=== PATIENT | female | born 1995 | race Caucasian/White ===

== ENCOUNTER → 2017-03-04 | Outpatient (CLI) | payer MEDICAID ==
--- NOTE | 2017-03-04 16:29 | RADIOLOGY REPORT (SQ) ---
EXAM DESCRIPTION: U/S OB TRANSVAGINAL W/O DOP COMPLETED DATE/TIME: 03/04/2017 4:15 pm REASON FOR STUDY: ENCOUNTER FOR SUPERVISON OR NORMAL FIRST Z34.02 ENCNTR FOR SUPRVSN OF N ORMAL FIRST PREG, SECOND TRIME COMPARISON: None. TECHNIQUE: Transvaginal static and realtime grayscale images acquired of the pelvis. Additional ewa cted spectral and color Doppler images recorded. All images stored on PACs. bHCG: Not available. LIMITATIONS: None. FINDINGS: UTERUS: No masses. No anomalies. GESTATIONAL SAC: Gestational sac, measurements corresponding to a 5 week 6 day gestation. YOLK SAC: Two yolk sacs are present. POLE: No. RIGHT ADNEXA: Normal ovary with normal vascular flow. No adnexal free fluid. No adnexal masses. LEFT ADNEXA: Normal ovary with normal vascular flow. No adnexal free fluid. No adnexal masses. FREE FLUID: None. OTHER: No other significant finding. IMPRESSION: EARLY TWIN INTRAUTERINE . POLE NOT YET VISUALIZED. RECOMMEND FOLLOW-UP ULTRASOUND IN SEVERAL DAYS TO CONFIRM NORMAL PROGRESSIVE DEVELOPMENT. Trimester of : First - 0 to 13 weeks. TECHNICAL DOCUMENTATION: JOB ID: [id number] [employer]- All Rights Reserved
== END ==
LOC: WI 14:33
PROVIDERS: ATTEND Nurse Practitioner Women's Health
DX: Z34.02 Encounter for supervision of normal first pregnancy, second trimester (principal)
CPT/HCPCS: 76817

== ENCOUNTER → 2017-03-18 | Outpatient (CLI) | payer MEDICAID ==
--- NOTE | 2017-03-18 16:22 | RADIOLOGY REPORT (SQ) ---
EXAM DESCRIPTION: U/S [id number] TRNABD 1GES W/ODOP COMPLETED DATE/TIME: 03/18/2017 3:47 pm REASON FOR STUDY: SIZE AND DATES Z34.01 ENCNTR FOR SUPRVSN OF NORMAL FIRST PREG, FIRST TRIMES COMPARISON: OB ULTRASOUND 03/04/2017 TECHNIQUE: Endovaginal static and realtime grayscale images acquired of the pelvis. Additional selec crow spectral and color Doppler images recorded. All images stored on PACs. bHCG: Not available LIMITATIONS: None. FINDINGS: FETUS: Living intrauterine . A monochorionic diamniotic twin is presen t. Each embryo is surrounded by its own amniotic membrane. EGA: 7 weeks 3 days JESSICA: 11/01/2017 FHR: Embryo a 169 beats per minute, embryo B 153 beats per minute. SUBCHORIONIC BLEED: Yes SIZE OF BLEED: Subchorionic hemorrhage along the lower uterine segment 1.9 x 1.2 x 0.7 cm in size. UTERUS: No masses. No anomalies. Uterus is 9.3 x 6.7 x 4.3 cm in size. CERVICAL LENGTH: 3 cm Closed. RIGHT ADNEXA: Normal ovary with normal vascular flow. Right ovary 3.3 x 2.8 x 2 cm in size No adnexal free fluid. No adnexal masses. LEFT ADNEXA: Normal ovary with normal vascular flow. Left ovary 1.9 x 1.7 x 1.2 cm in size No adnexal free fluid. No adnexal masses. FREE FLUID: None. OTHER: No other significant finding. IMPRESSION: LIVING INTRAUTERINE . Monochorionic diamniotic twin EGA 7 weeks 3 days Trimester of : First - 0 to 13 weeks. TECHNICAL DOCUMENTATION: JOB ID: [id number] [employer]- All Rights Reserved
== END ==
LOC: RAD 14:31
PROVIDERS: ATTEND Nurse Practitioner Women's Health
DX: Z34.01 Encounter for supervision of normal first pregnancy, first trimester (principal)
CPT/HCPCS: 76801

== ENCOUNTER 2017-09-17 00:07 | Inpatient (IN) | payer MEDICAID ==
[2017-09-17 00:44] LABS: AMNISURE (ROM) NEGATIVE (NEGATIVE)
[2017-09-17 00:47] LABS: AMORPHOUS SEDIMENT,URINE TRACE /HPF; APPEARANCE,URINE CLOUDY; BILIRUBIN,URINE NEGATIVE (NEGATIVE); COLOR,URINE YELLOW; GLUCOSE, URINE NEGATIVE (NEGATIVE); KETONES,URINE NEGATIVE (NEGATIVE); LEUKOCYTE ESTERASE,URINE LARGE (NEGATIVE); NITRITE,URINE NEGATIVE (NEGATIVE); PROTEIN,URINE NEGATIVE (NEGATIVE); URINE SPECIFIC GRAVITY 1.005; UROBILINOGEN,URINE NEGATIVE mg/dL (<2.0)
[2017-09-17 01:00] LABS: URINE AMPHETAMINES SCREEN NEGATIVE; URINE BARBITURATES SCREEN NEGATIVE; URINE BENZODIAZEPINES SCREEN NEGATIVE; URINE COCAINE SCREEN NEGATIVE; URINE MARIJUANA (THC) SCREEN NEGATIVE; URINE METHADONE SCREEN NEGATIVE; URINE PHENCYCLIDINE SCREEN NEGATIVE
[2017-09-17 01:30] LABS: RBCS (WET MOUNT) 1+ RBCS SEEN; T.VAGINALIS (WET MOUNT) NO TRICHOMONAS SEEN; WBCS (WET MOUNT) 2+ WBCS SEEN; YEAST (WET MOUNT) YEAST SEEN
--- NOTE | 2017-09-17 01:51 | RADIOLOGY REPORT (SQ) ---
EXAM DESCRIPTION: U/S OB LIMITED CLINICAL HISTORY: 22 years Female, suspected PROM, presentation, MVP, twins clinical gestational age of 33 weeks, 1 day. COMPARISON: None. TECHNIQUE: Limited third trimester obstetrical transabdominal ultrasound obtained to evaluate for viability and maximum vertical pocket of amniotic fluid. FINDINGS: Fetus A: Heart rate 152 bpm. Maximal vertical pocket of 4.5 cm. A vertex presentation. Fetus B: Heart rate of 145 bpm. Maximum vertical pocket of 6.3 cm. Vertex presentation. No other abnormalities identified on limited obstetrical ultrasound. IMPRESSION: 1. Live twin intrauterine . Normal maximum vertical pocket for both fetuses. Heart rate for fetus a of 152 bpm. Heart rate of fetus B1 145 bpm
[2017-09-17] MEDS ORDERED: BETAMET ACET/BETAMET NA INJ 6 MG/1 ML ONE (01:52)
[2017-09-17] MEDS ORDERED: AMPICILLIN SOD INJ 2 GM VIAL ONE ×3 (01:52→14:06)
[2017-09-17] MEDS ORDERED: RINGERS SOLUTION,LACTATED 1,000 ML IV PRN (01:56)
[2017-09-17] MEDS ORDERED: AMPICILLIN SOD INJ 2 GM VIAL IV PRN (02:04)
[2017-09-17] MEDS ORDERED: ERYTHROMYCIN INJ 500 MG VIAL IV ONE (02:06)
[2017-09-17 02:27] LABS: ABSOLUTE EOSINOPHILS # (AUTO) 0.2 10^3/uL (0.0-0.6); ABSOLUTE LYMPHOCYTES (AUTO) 2.6 10^3/uL (0.5-4.7); ABSOLUTE MONOCYTES (AUTO) 0.8 10^3/uL (0.1-1.4); ABSOLUTE NEUT (AUTO) 5.5 10^3/uL (1.7-8.2); BASOPHILS % (AUTO) 0.2 % (0-2); EOSINOPHILS % (AUTO) 2.5 % (0-6); HEMATOCRIT 31.2 % (36.0-47.0); HEMOGLOBIN 10.8 g/dL (12.0-15.5); LYMPHOCYTES % (AUTO) 28.7 % (13-45); MEAN CORPUSCULAR HEMOGLOBIN 31.8 pg (27.0-33.4); MEAN CORPUSCULAR HGB CONC 34.5 g/dL (32.0-36.0); MEAN CORPUSCULAR VOLUME 92 fl (80-97); MONOCYTES % (AUTO) 9.1 % (3-13); PLATELET COUNT 141 10^3/uL (150-450); RED BLOOD COUNT 3.39 10^6/uL (3.72-5.28); RED CELL DISTRIBUTION WIDTH 12.5 % (11.5-14.0); SEGMENTED NEUTROPHILS % (AUTO) 59.5 % (42-78); TOTAL CELLS COUNTED % (AUTO) 100 %; WHITE BLOOD COUNT 9.2 10^3/uL (4.0-10.5)
[2017-09-17] MEDS ORDERED: AMPICILLIN SODIUM 2 GM in NORMAL SALINE 100 ML IV ONE (02:30)
[2017-09-17] MEDS ORDERED: RINGERS SOLUTION,LACTATED 1,000 ML IV ONE (02:30)
[2017-09-17] MEDS ORDERED: ERYTHROMYCIN INJ 500 MG VIAL IV PRN (03:00)
[2017-09-17] MEDS ORDERED: BETAMET ACET/BETAMET NA INJ 6 MG/1 ML IM ONE (03:00)
[2017-09-17] MEDS: ERYTHROMYCIN LACTOBIONATE 250 MG in NORMAL SALINE 100 ML IV SCH ×3 (03:05→15:09)
[2017-09-17] MEDS ORDERED: AMPICILLIN SODIUM 2 GM in NORMAL SALINE 100 ML IV SCH (06:00)
--- NOTE | 2017-09-17 10:27 | L&D Progress Notes ---
PROGRESS NOTES Datetime Report Generated by CPN: 09/17/2017 10:27 PROGRESS NOTE Informed Consent Obtained: Vaginal Delivery; Risks, Benefits and Alternatives Discussed Vital Signs : Reviewed; Within Normal Limits Comment: no uc's,no c/o, seen by Dr. Bo, vs stable, POC discussed VAGINAL EXAM Dilatation: 1 Effacement: 25 Station: -3 Contractions: rare MEMBRANES Membranes: Ruptured Amniotic Fluid Color: Clear FETUS A Presentation: Vertex FETUS B Presentation: Vertex SIGNATURE SIGNATURE: [id number] Assignment: Liu Bo MD Signature: with User ID: [email or web address] : with User ID: [email or web address]
[2017-09-17] MEDS: AMPICILLIN SODIUM 2 GM in NORMAL SALINE 100 ML IV SCH (21:12)
[2017-09-17] MEDS: ERYTHROMYCIN BASE 250 MG TABLET PO SCH (21:24)
[2017-09-17 22:25] LABS: CHLAM PCR NOT DETECTED (NOT DETECT); GON PCR NOT DETECTED (NOT DETECT)
[2017-09-18] MEDS: AMPICILLIN SODIUM 2 GM in NORMAL SALINE 100 ML IV SCH ×2 (02:03→09:11)
[2017-09-18] MEDS: ERYTHROMYCIN BASE 250 MG TABLET PO SCH ×2 (02:04→09:11)
[2017-09-18] MEDS ORDERED: BETAMET ACET/BETAMET NA INJ 6 MG/1 ML IM SCH ×2 (03:00→08:00)
--- NOTE | 2017-09-18 04:32 | Non Stress Test Report ---
Non Stress Test Datetime Report Generated by CPN: 09/18/2017 04:32 DEMOGRAPHIC EGA NST: 33.4 INDICATION Indication for Study: Other MONITORING Monitor Explained: Monitor Explained; Test Explained; Patient Verbalized Understanding Time on Monitor: 09/17/2017 13:55 Time off Monitor: 09/17/2017 14:27 NST Duration: 32 NST INTERVENTIONS NST Interventions: None Physician Notified NST: Dr. Bo BABY A: [id number] BABY A Movement : Present Contraction Frequency : none FHR Baseline : 130 Accelerations : 15X15 Decelerations : None Variability : Moderate 6-25bpm NST Review: Meets Criteria for Reactive NST NST Review and Verified By : Brigid Hakan RNC NST Results: Reactive BABY B Movement: Present FHR Baseline: 125 Accelerations: 15X15 Decelerations: Variable Variability: Moderate 6-25bpm NST Review: Meets Criteria for Reactive NST NST Reviewed And Verified By: Brigid Hakan RNC NST Results: Reactive NST REPORT Report Trigger: Send Report Report Trigger: Send Report
[2017-09-18] MEDS ORDERED: FENTANYL/BUPIVACAINE/NS/PF 200 MCG/100 ML RTUINJ EPI ONE (06:22)
[2017-09-18] MEDS ORDERED: BUPIVACAINE HCL 0.25 % INJ/PF (2.5 MG/1 ML) 30 ML VIAL ONE (06:22)
[2017-09-18] MEDS ORDERED: EPHEDRINE SULFATE INJ 50 MG/1 ML AMPULE ONE (06:22)
[2017-09-18] MEDS ORDERED: BENZOIN/ALOE VERA/STORAX/TOLU TINCTURE 60 ML TP PRN (06:23)
[2017-09-18] MEDS ORDERED: EPHEDRINE SULFATE INJ 50 MG/1 ML AMPULE IV ONE (06:23)
[2017-09-18] MEDS ORDERED: DIPHENHYDRAMINE HCL 50 MG/ML VIAL IV PRN (06:23)
[2017-09-18] MEDS ORDERED: BUPIVACAINE HCL 0.25 % INJ/PF (2.5 MG/1 ML) 30 ML VIAL INFIL ONE (06:23)
--- NOTE | 2017-09-18 07:28 | RADIOLOGY REPORT (SQ) ---
EXAM DESCRIPTION: U/S OB LIMITED CLINICAL HISTORY: 22 years Female, limited obstetrical ultrasound to evaluate for presentation. Clinical gestational age of 33 weeks, 2 day. COMPARISON: 09/17/2017 TECHNIQUE: Limited third trimester obstetrical transabdominal ultrasound obtained to evaluate for 20 presentation. FINDINGS: Fetus A: Heart rate 133 bpm. Vertex presentation. Fetus B: Heart rate of 131 bpm. Vertex presentation. No other abnormalities identified on limited obstetrical ultrasound. IMPRESSION: 1. Live twin intrauterine . Heart rate for fetus A of 133 bpm. Heart rate of fetus B 131 bpm Electronically signed by: Vinod Galeana 09/18/2017 6:26 AM AIRPLANE MECHANIC
[2017-09-18] MEDS ORDERED: MISOPROSTOL 0.2 MG TABLET ONE (08:07)
[2017-09-18] MEDS ORDERED: OXYTOCIN/NORMAL SALINE 20 UNIT/1,000 ML RTUINJ ONE (08:07)
[2017-09-18] MEDS ORDERED: METHYLERGONOVINE MALEATE INJ/PF 0.2 MG/1 ML AMPULE ONE (08:07)
[2017-09-18] MEDS ORDERED: LIDOCAINE 1% INJ-PF (10 MG/ML) 30 ML SDV ONE (08:07)
[2017-09-18] MEDS: FENTANYL/BUPIVACAINE/NS/PF 200 MCG/100 ML RTUINJ EPI PRN ×3 (09:06→14:07)
[2017-09-18] MEDS: EPHEDRINE SULFATE INJ 50 MG/1 ML AMPULE IV PRN ×2 (09:55→14:07)
--- NOTE | 2017-09-18 11:44 | L&D Progress Notes ---
PROGRESS NOTES Datetime Report Generated by CPN: 09/18/2017 11:44 PROGRESS NOTE Impression: Normal Progression of Labor Procedures: Sterile Vag Exam Plan: Continue Present Management Informed Consent Obtained: Vaginal Delivery; Risks, Benefits and Alternatives Discussed Vital Signs : Reviewed Comment: pt is 7/c/+1 and will get OR ready for delivery of [place]/Di TIUP for of TIUP. Vtx/Vtx by US this am. CAT I FHR tracing A/B. A with variable decels. FETUS C SIGNATURE: [id number] SIGNATURE: [id number];[id number] Signature: with User ID: [email or web address]
[2017-09-18] MEDS ORDERED: BENZOCAINE/MENTHOL AEROSOL SPRAY 56 ML TOP PRN (12:21)
[2017-09-18] MEDS ORDERED: PROMETHAZINE HCL 25 MG TABLET PO PRN (12:21)
[2017-09-18] MEDS ORDERED: PROMETHAZINE HCL INJ 25 MG/1 ML VIAL IV PRN (12:21)
[2017-09-18] MEDS ORDERED: DIPHENHYDRAMINE HCL 25 MG CAPSULE PO PRN (12:21)
[2017-09-18] MEDS ORDERED: OXYTOCIN/NORMAL SALINE 20 UNIT/1,000 ML RTUINJ IV PRN (12:21)
[2017-09-18] MEDS ORDERED: ZOLPIDEM TARTRATE 5 MG TABLET PO PRN (12:21)
[2017-09-18] MEDS ORDERED: GLYCERIN/WITCH HAZEL LEAF 1 EACH MED..PAD TP PRN (12:21)
[2017-09-18] MEDS ORDERED: DIBUCAINE 1% OINTMENT 28 GM TP PRN (12:21)
[2017-09-18] MEDS ORDERED: DIPH/PERTUSS(ACELL)/TETANUS VAC/PF 0.5 ML SYR (>=10YO) IM PRN (12:21)
[2017-09-18] MEDS ORDERED: PSEUDOEPHEDRINE HCL 30 MG TABLET PO PRN (12:21)
[2017-09-18] MEDS ORDERED: ACETAMINOPHEN 650 MG SUPP.RECT PR PRN (12:21)
[2017-09-18] MEDS ORDERED: NA PHOS,M-B/NA PHOS,DI-BA (ADULT) 133 ML ENEMA PR PRN (12:21)
[2017-09-18] MEDS ORDERED: ACETAMINOPHEN WITH CODEINE #3 TABLET PO PRN ×2 (12:21)
[2017-09-18] MEDS ORDERED: MEASLES,MUMPS&RUBELLA VACC/PF 0.5 ML VIAL SUBCUT PRN (12:21)
[2017-09-18] MEDS ORDERED: MAGNESIUM HYDROXIDE SUSP 30 ML UDCUP PO PRN (12:21)
[2017-09-18] MEDS ORDERED: PROMETHAZINE HCL 25 MG SUPP.RECT PR PRN (12:21)
--- NOTE | 2017-09-18 15:23 | Admission Physical ---
Datetime Report Generated by CPN: 09/18/2017 15:23 CURRENT ADMISSION Chief Complaint: Suspected Ruptured Membranes Indication for Induction: Not Applicable Indication for Induction: , Intrauterine ; No Active Labor; Ruptured Membranes Admit Plan: Admit to Unit; Observation/Evaluation ALLERGIES Medication Allergies: No Medication Allergies: No Known Allergies (09/17/2017) Latex: No Latex Allergies OBSTETRICAL HISTORY EDC: 11/01/2017 00:00 : 1 Para: 0 Term: 0 : 0 SAB: 0 IAB: 0 Ectopic: 0 Livin Cesareans: 0 VBACs: 0 Multiple Births: 0 Gestational Diabetes: No Rh Sensitization: No Incompetent Cervix: No OPAL: No Infertility: No ART Treatment: No Uterine Anomaly: No IUGR: No Hx Previous C/S: No Macrosomia: No Hx Loss/Stillborn: No PIH: No Hx : No Placenta Previa/Abruption: No Depression/PP Depression: No PTL/PROM: No Post Hemorrhage: No Current Procedures: Ultrasound; NST; Doppler Flow Study Obstetrical History Comments: G1-Mo/Di Twins: Twin B with marginal cord insertion per MFM SEE RECORDS Alcohol: No Marijuana : No Cocaine: No Other Illicit Drugs: No Cigarettes: Never Smoker. [id number] MEDICAL HISTORY Diabetes: No Blood Transfusion: No Pulmonary Disease (Asthma, TB): No Breast Disease: No Hypertension: No Rn Supplemental Surgery: No Heart Disease: No Hosp/Surgery: No Autoimmune Disorder: No Anesthetic Complications: No Kidney Disease: No Abnormal Pap Smear: No Neuro/Epilepsy: No Psychiatric Disorders: No Other Medical Diseases: No Hepatitis/Liver Disease: No Significant Family History: No Varicosities/Phlebitis: No Trauma/Violence : No Thyroid Dysfunction: No INFECTIOUS HISTORY Gonorrhea: No Genital Herpes: No Chlamydia: No Tuberculosis: No Syphilis: No Hepatitis: No HIV/AIDS Exposure: No Rash or Viral Illness: No HPV: No PHYSICAL EXAM General: Normal HEENT: Normal Neurologic: Normal Thyroid: Deferred Heart: Normal Lungs: Normal Breast: Deferred Back: Normal Abdomen: Normal Genitourinary Exam: Normal Extremities: Normal DTRs: Normal Pelvic Type: Adequate VAGINAL EXAM Dilatation: 1 Effacement: 25 Station: -3 Contraction Comments: rare MEMBRANES Membranes: Ruptured Amniotic Fluid Color: Clear FETUS A EGA: 33.4 Monitoring: External US FHR- Baseline: 140 Variability: Moderate 6-25bpm Accelerations: 15X15 Decelerations: None FHR Category: Category I Presentation: Vertex Admit Comment: 22yo at 33+4ega (dated by 7+3ega US on 03/18/2017) who presents for suspected PPROM. Pt reports gush of fluid at 2315 - cleare fluid. She reports that she then continued to leak. Amnisure was done which was negative. However, still noting increase fluid on perineum - Wet prep, Fern and GBS done, GC/CT done. Pooling and valsalva noted on exam and Ferning present. REviwed PPROM with patient and need for steroids for FLM. Amp/Erythro for latency. Admit to l_D for observation and expectant management. Reviewed plan to deliver if unstoppable labor or when she reaches 34weeks. babies are now vtx/vtx and would be good candidate for Vaginal delivery. FETUS B Monitoring: External US Monitoring: External US Monitoring: External US Monitoring: External US Monitoring: External US Monitoring: External US Monitoring: External US Monitoring: External US Monitoring: External US Monitoring: External US Monitoring: External US Monitoring: External US Monitoring: External US Monitoring: External US Monitoring: External US Monitoring: External US Monitoring: External US Monitoring: External US Monitoring: External US Monitoring: External US Monitoring: External US Monitoring: External US Variability: Moderate 6-25bpm Accelerations: 15X15 Decelerations: None FHR Category: Category I Presentation: Vertex PLANS FOR LABOR AND DELIVERY Labor and Delivery: None Pain Management: Epidural Feeding Preference: Breast Benefit of Breast Feed Discussed: Yes INFORMED CONSENT Informed Consent Obtained: Vaginal Delivery; Risks, Benefits and Alternatives Discussed Informed Consent Obtained: Vaginal Delivery; Risks, Benefits and Alternatives Discussed Signature: with User ID: [email or web address]
[2017-09-18] MEDS: IBUPROFEN 800 MG TABLET PO SCH ×2 (16:46→21:14)
[2017-09-18] MEDS: FERROUS SULFATE 325 MG TABLET PO SCH (18:41)
[2017-09-18] MEDS: DOCUSATE SODIUM 100 MG CAPSULE PO SCH (18:41)
[2017-09-18] MEDS: FAMOTIDINE 20 MG TABLET PO SCH (21:14)
[2017-09-19] MEDS ORDERED: AMPICILLIN TRIHYD 500 MG CAPSULE PO SCH
[2017-09-19] MEDS: IBUPROFEN 800 MG TABLET PO SCH ×3 (05:51→21:32)
[2017-09-19 07:50] LABS: HEMOGLOBIN 9.7 g/dL (12.0-15.5); MEAN CORPUSCULAR HEMOGLOBIN 31.2 pg (27.0-33.4); MEAN CORPUSCULAR HGB CONC 33.5 g/dL (32.0-36.0); MEAN CORPUSCULAR VOLUME 93 fl (80-97); PLATELET COUNT 146 10^3/uL (150-450); RED BLOOD COUNT 3.11 10^6/uL (3.72-5.28); RED CELL DISTRIBUTION WIDTH 12.5 % (11.5-14.0); WHITE BLOOD COUNT 14.4 10^3/uL (4.0-10.5)
--- NOTE | 2017-09-19 08:32 | Delivery Summary ---
Del Sum A-C Datetime Report Generated by CPN: 09/19/2017 08:31 DELIVERY PERSONNEL DELIVERY PERSONNEL: [id number] Delivery Doctor:: Lacy Chu MD Labor and Delivery Nurse:: KORI Mai Labor and Delivery Nurse:: KORI Pulido Nurse Practitioner:: NOELLE Todd Nursery Nurse:: Fina Keen RN Nursery Nurse:: Adina Becerril RN Industrial Aerial Installer/POTATO PICKER: Yoli Levine CNA II Industrial Aerial Installer/HANH: Basilia Shaver, CHAMBER WORKER MATERNAL INFORMATION Delivery Anesthesia: Epidural Medications After Delivery: Pitocin Bolus-Please Comment; Pitocin Drip 20 Units/1000ml NSS Estimated Blood Loss (ml): 350 Maternal Complications: Premature Rupture of Membranes; Other Other Maternal Complications: MO/DI Twins Provider Comments: Patient evaluated and c/c/+2 with baby A. Patient brought to the OR and pushed easily with delivery of Baby A at 1203 in ADELIA presentation. No nuchal Cord. Shoulders and body delivered without difficulty. Cord doubly clamped and cut and infant to Peds for NRP. Baby B evaluated and vertex presentation. AROM performed. Head descended into pelvis quickly and prolapsed cord noted - easily reduced back into uterus behind Head. FHR stable in 120's and reassuring until just before delivery of head. head then easily delivered in JOSE CARLOS presentation at 1210 and shoulders and body delivered without difficulty. Cord doubly clamped and cut and infant to Peds for NRP. Placentas delivered intact spontaneously at 1213. One clamp placed on placenta for Baby A, Two clamps placed on placenta for baby B. No perineal lacerations. Mother and baby stable upon provider leaving the room. Weights and apgars pending due to 33+4ega and need to go to NICU/Nursery. LABOR SUMMARY EDC: 11/01/2017 00:00 No. Babies in Womb: 2 Attempted: No Labor Anesthesia: Epidural LABOR INFORMATION Reason for Induction: Not Applicable Onset of Labor: 09/18/2017 03:00 Complete Dilatation: 09/18/2017 11:45 Oxytocin: N/A Group B Beta Strep: unknown Steroids Given: Full Course Reason Steroids Not Administered: Indication; Imminent Delivery MEMBRANES Membranes Rupture Method: Spontaneous Rupture of Membranes: 09/16/2017 23:15 Length of Rupture (hr): 36.80 Amniotic Fluid Color: Clear Amniotic Fluid Amount: Moderate Amniotic Fluid Odor: Normal STAGES OF LABOR Stage 1 hr: 8 Stage 1 min: 45 Stage 2 hr: 0 Stage 2 min: 18 Stage 3 hr: 0 Stage 3 min: 10 Total Time in Labor hr: 9 Total Time in Labor min: 13 VAGINAL DELIVERY Episiotomy: None Laceration #1: None Laceration Extension #1: N/A Laceration Repair: Not Applicable Sponge Count Correct: Yes Sharps Count Correct: Yes CSECTION DELIVERY Primary Indication: N/A Secondary Indication: N/A Labor: N/A Elective: N/A CSection Incision: N/A BABY A INFORMATION Delivery Date/Time: 09/18/2017 12:03 Method of Delivery: Vaginal Born in Route : No : N/A Forceps: N/A Vacuum Extraction: N/A Shoulder Dystocia : No PRESENTATION/POSITION BABY A Presentation: Cephalic Cephalic Presentation: Vertex Vertex Position: Right Occipital Anterior PLACENTA INFORMATION BABY A Placenta Delivery Time : 09/18/2017 12:13 Placenta Method of Delivery: Spontaneous Placenta Status: Delivered SCORES BABY A Heart Rate 1 min: >100 bpm Resp Effort 1 min: Good Cry Reflex Irritability 1 min: Cough or Sneeze or Pulls Away Muscle Tone 1 min: Active Motion Color 1 min: Body [place], Extremities Blue SCORE 1 MIN: 9 Heart Rate 5 min: >100 bpm Resp Effort 5 min: Good Cry Reflex Irritability 5 min: Cough or Sneeze or Pulls Away Muscle Tone 5 min: Active Motion Color 5 min: Body [place], Extremities Blue SCORE 5 MIN: 9 INFORMATION BABY A Gestational Age at Delivery: 33.5 Gestational Status: - <34 Weeks Outcome : Liveborn Condition : Stable Sex: Male IDENTIFICATION BABY A Infant Verification Date/Time: 09/18/2017 12:45 ID Band Number: [id number] Mother's Name Verified: Yes Infant RN Verifying Infant: K Galdino RNC/A Kai RN WEIGHT/LENGTH BABY A Birthweight (gm): 1985 Weight (lb): 4 Infant Weight (oz): 6 Infant Length (in): 17.75 Length (cm): 45.09 CORD INFORMATION BABY A No. Cord Vessels: 3 Nuchal Cord : N/A Cord Blood Taken: Yes-For Storage (Mom's Blood type +) Infant Suction: Mouth; Nose ASSESSMENT BABY A Infant Respirations: Appears Normal Skin to Skin: No Assistant Property Manager/ALS Called : Yes Infant Care By: D Matters/R Dimitris/ R Gr/L Tovar Transferred To: NICU BABY B INFORMATION Delivery Date/Time: 09/18/2017 12:10 Method of Delivery : Vaginal Born in Route : No : N/A Forceps : N/A Vacuum Extraction: N/A Shoulder Dystocia : No SHOULDER DYSTOCIA BABY B Infant Delivery Date/Time: 09/18/2017 12:10 PRESENTATION/POSITION BABY B Presentation : Cephalic Cephalic Position : Vertex Vertex Position: Left Occipital Anterior Breech Position: N/A ROM/PLACENTA INFO BABY B Rupture of Membranes: 09/18/2017 12:05 Length of Rupture (hr): 0.08 Placenta Delivery Time : 09/18/2017 12:13 Placenta Method of Delivery: Spontaneous Placental Status : Delivered SCORES BABY B Heart Rate 1 min: Slow, Below 100 bpm Resp Effort 1 min: Slow, Irregular Reflex Irritability 1 min: [place]im[place] Muscle Tone 1 min: Some Flexion of Extremities Color 1 min: Blue/Pale Resuscitation Effort 1 min: Tactile Stimulation; Oxygen; PPV/NCPAP SCORE 1 MIN: 4 Heart Rate 5 min: >100 bpm Resp Effort 5 min: Good Cry Reflex Irritability 5 min: Cough or Sneeze or Pulls Away Muscle Tone 5 min: Some Flexion of Extremities Color 5 min: Body [place], Extremities Blue Resuscitation Effort 5 min: Tactile Stimulation SCORE 5 MIN: 8 Resuscitation Effort 10 min: N/A INFORMATION BABY B Gestational Age at Delivery: 33.5 Gestational Status : - <34 Weeks Outcome : Liveborn Infant Condition : Stable Infant Sex : Male IDENTIFICATION BABY B Infant Verification Date/Time: 09/18/2017 12:45 ID Band Number : [id number] Mother's Name Verified: Yes RN Verifying : K Galdino RNC, A Quinn RN WEIGHT/LENGTH BABY B Infant Birthweight (gm): 1865 Weight (lb) : 4 Infant Weight (oz): 2 Infant Length (in): 17.75 Length (cm): 45.09 CORD INFORMATION BABY B No. Cord Vessels : 3 Nuchal Cord : N/A Cord Blood Taken : Yes-For Storage (Mom's Blood Type +) Infant Suction : Mouth; Nose ASSESSMENT BABY B Skin to Skin: No Assistant Property Manager/ALS Called : Yes Care By : D Matters/R Dimitris/R Gr/L Tovar Transfer To: NICU SIGNATURES Signature: with User ID: [email or web address]
[2017-09-19] MEDS: FERROUS SULFATE 325 MG TABLET PO SCH ×2 (09:31→18:23)
[2017-09-19] MEDS: FAMOTIDINE 20 MG TABLET PO SCH ×2 (09:32→21:32)
[2017-09-19] MEDS: DOCUSATE SODIUM 100 MG CAPSULE PO SCH ×2 (09:32→18:23)
[2017-09-19] MEDS: PRENATAL VITAMIN W DHA CAPSULE PO SCH (09:32)
[2017-09-19] MEDS: SENNOSIDES/DOCUSATE 8.6-50 MG 1 EACH TABLET PO SCH (09:32)
--- NOTE | 2017-09-19 18:51 | PDOC PROGRESS REPORT ---
Subjective-OB Subjective: Post Delivery Day:1 22 year old G1 now P1L2 s/p ppd1. Ambulating, voiding and pumping for babies without difficulty. Denies any needs at this time Physical Exam (OB) Vital Signs: Temp Pulse Resp BP Pulse Ox 97.8 F 50 L 18 126/81 H 99 09/19/17 07:23 09/19/17 07:23 09/19/17 07:23 09/19/17 07:23 09/19/17 07:23 Intake & Output 09/18/17 09/19/17 09/20/17 06:59 06:59 06:59 Intake Total 1100 Balance 1100 - General General Appearance: Appears well In distress: None - PIH/Pre-Eclampsia Headache: Absent Epigastric Pain: No Visual Changes: No - Episiotomy/Laceration Site Condition: N/A - Lochia Lochia Amount: Scant < 10 ml - Abdomen Description: Soft Hernia Present: No Fundal Description: Firm Fundal Height: u/u - u/2 - Respiratory Respiratory Status: No respiratory distress - Extremities Upper extremity: Normal inspection Lower extremities: Normal inspection - Neurological Cognition: Normal Orientation: AAOx4 - Psychological Associated symptoms: Normal affect, Normal mood Objective-Diagnostic Laboratory: 09/19/17 07:42 09/19/17 07:42 WBC 14.4 H RBC 3.11 L Hgb 9.7 L Hct 29.0 L MCV 93 MCH 31.2 MCHC 33.5 RDW 12.5 Plt Count 146 L 09/17/17 00:21 Clean Catch Midstream Urine Culture - Final Lactobacillus (Vaginal Phyllis) C.albicans/C.dubliniensis Assessment and Plan(PN) - Assessment and Plan (1) delivered vaginally, 2,000-2,499 grams, 33-34 completed weeks Is this a current diagnosis for this admission?: Yes Plan: routine pp care (2) Twin delivered vaginally Is this a current diagnosis for this admission?: Yes Plan: routine pp care (3) Anemia complicating , third trimester Is this a current diagnosis for this admission?: Yes Plan: increase dietary iron and feso4 BID (4) Monochorionic diamniotic twin gestation Qualifiers: Trimester: unspecified trimester Qualified Code(s): O30.039 - Twin , monochorionic/diamniotic, unspecified trimester Is this a current diagnosis for this admission?: Yes Plan: delivered (5) premature rupture of membranes (PPROM) with onset of labor within 24 hours of rupture in third trimester, antepartum Is this a current diagnosis for this admission?: Yes Plan: delivered, babies in NICU - Time Spent with Patient Time with patient: 15-25 minutes Medications reviewed and adjusted accordingly: Yes - Disposition Anticipated Discharge: Home Within: within 24 hours
[2017-09-20] MEDS: IBUPROFEN 800 MG TABLET PO SCH (05:16)
--- NOTE | 2017-09-20 09:29 | PDOC PROGRESS REPORT ---
Subjective-OB Subjective: Post Delivery Day: 22 year old. Denies any needs at this time Doing well, ready to go home, babies doing well, will need to stay a few weeks, eating well, voiding, ambulating Physical Exam (OB) Vital Signs: Temp Pulse Resp BP Pulse Ox 97.8 F 53 L 17 118/79 99 09/20/17 07:18 09/20/17 07:18 09/20/17 07:18 09/20/17 07:18 09/20/17 07:18 - PIH/Pre-Eclampsia Headache: Absent Epigastric Pain: No Visual Changes: No - Lochia Lochia Amount: Scant < 10 ml - Abdomen Description: Soft Hernia Present: No Fundal Description: Firm Fundal Height: u/u - u/2 Objective-Diagnostic Laboratory: 09/19/17 07:42 09/17/17 02:30 Vaginal/Anorectal Group B Streptococcus Culture - Final GROUP B BETA HEMOLYTIC STREPTOCOCCUS RECOVERED Assessment and Plan(PN) - Assessment and Plan (1) delivered vaginally, 2,000-2,499 grams, 33-34 completed weeks Is this a current diagnosis for this admission?: Yes (2) Anemia complicating , third trimester Is this a current diagnosis for this admission?: Yes (3) premature rupture of membranes (PPROM) with onset of labor within 24 hours of rupture in third trimester, antepartum Is this a current diagnosis for this admission?: Yes (4) Monochorionic diamniotic twin gestation Qualifiers: Trimester: first trimester Qualified Code(s): O30.031 - Twin , monochorionic/diamniotic, first trimester Is this a current diagnosis for this admission?: Yes - Time Spent with Patient Time with patient: Less than 15 minutes Medications reviewed and adjusted accordingly: Yes - Disposition Anticipated Discharge: Home Within: Other - home today
--- NOTE | 2017-09-20 09:34 | PDOC DISCHARGE SUMMARY ---
Final Diagnosis Discharge Date: 09/20/17 - Final Diagnosis (1) delivered vaginally, 2,000-2,499 grams, 33-34 completed weeks Is this a current diagnosis for this admission?: Yes (2) Anemia complicating , third trimester Is this a current diagnosis for this admission?: Yes (3) premature rupture of membranes (PPROM) with onset of labor within 24 hours of rupture in third trimester, antepartum Is this a current diagnosis for this admission?: Yes (4) Monochorionic diamniotic twin gestation Is this a current diagnosis for this admission?: Yes Discharge Data - Discharge Medication Home Medications: Pnv,Calcium 72/Iron/Folic Acid [ Plus Tablet] 1 each PO DAILY 09/17/17 Gestational Age: 33.5 Reason(s) for Admission: Onset of Labor, PROM Procedures: NST, Ultrasound Intrapartum Procedure(s): Spontaneous Vaginal Delivery - Data Baby 1 Male Weight: 1.984 kg Home with Mother: No Complications: Yes - Baby 2 Male at 1 minute: 4 at 5 minutes: 8 Weight: 1.871 kg Home with Mother: No Complications: Yes - - Diagnosis Test Laboratory: Temp Pulse Resp BP Pulse Ox 97.8 F 53 L 17 118/79 99 09/20/17 07:18 09/20/17 07:18 09/20/17 07:18 09/20/17 07:18 09/20/17 07:18 09/17/17 09/17/17 09/19/17 00:21 01:54 07:42 RBC 3.39 L 3.11 L Hgb 10.8 L 9.7 L Hct 31.2 L 29.0 L Urine Opiates Screen NEGATIVE - Discharge information/Instructions Discharge Activity: Activity As Tolerated, No Lifting Over 10 Pounds, Pelvic Rest Discharge Diet: As Tolerated, Regular Disposition: HOME, SELF-CARE Follow up with: [facility] in: 4, Weeks
[2017-09-20] MEDS: SENNOSIDES/DOCUSATE 8.6-50 MG 1 EACH TABLET PO SCH (10:23)
[2017-09-20] MEDS: DOCUSATE SODIUM 100 MG CAPSULE PO SCH (10:23)
[2017-09-20] MEDS: FAMOTIDINE 20 MG TABLET PO SCH (10:24)
[2017-09-20] MEDS: FERROUS SULFATE 325 MG TABLET PO SCH (10:24)
[2017-09-20] MEDS: PRENATAL VITAMIN W DHA CAPSULE PO SCH (10:24)
[2017-09-20 11:23] VITALS: BP 132/68
== END 2017-09-20 13:20 | disposition home or self-care (01) | DRG 775 ==
LOC: LC 00:07 → LR 01:43 → 2S 14:45 → LR 09-18 04:36 → 2S 09-18 15:20
PROVIDERS: ADMIT Student in an Organized Health Care Education/Training Program; ATTEND Student in an Organized Health Care Education/Training Program
PROC: 10E0XZZ Delivery of Products of Conception, External Approach (ICD-10-PCS; principal; 2017-09-18)
PROC: 4A1HXCZ Monitoring of Products of Conception, Cardiac Rate, External Approach (ICD-10-PCS; 2017-09-18)
PROC: 3E0234Z Introduction of Serum, Toxoid and Vaccine into Muscle, Percutaneous Approach (ICD-10-PCS; 2017-09-20)
DX: O42.013 Preterm premature rupture of membranes, onset of labor within 24 hours of rupture, third trimester (principal); O60.14X0 Preterm labor third trimester with preterm delivery third trimester, not applicable or unspecified; O30.033 Twin pregnancy, monochorionic/diamniotic, third trimester; O99.02 Anemia complicating childbirth; D64.9 Anemia, unspecified; Z3A.33 33 weeks gestation of pregnancy; Z37.2 Twins, both liveborn; Z23 Encounter for immunization
CPT/HCPCS: 36415; 59025; 76815; 80307; 81001; 84112; 85025; 85027; 86592; 86850; 86900; 86901; 87077; 87081; 87086; 87210; 87491; 87591; 88307; 90715; 96372; 99465; J0290; J0702; J1364; J2210; J2590; J3490; Q0114

== ENCOUNTER 2019-05-24 10:54 | Emergency (ER) | payer MEDICAID ==
[2019-05-24] MEDS ORDERED: LIDOCAINE 1% INJ-PF (10 MG/ML) 30 ML SDV INJ ONE (11:39)
[2019-05-24] MEDS ORDERED: DIPH/PERTUSS(ACELL)/TETANUS VAC/PF 0.5 ML SYR (>=10YO) IM ONE (11:39)
[2019-05-24] MEDS ORDERED: ACETAMINOPHEN 325 MG TABLET PO ONE (11:40)
--- NOTE | 2019-05-24 11:41 | ER Document Report ---
HPI - HPI Patient complains to provider of: finger lac Time Seen by Provider: 05/24/19 11:35 Onset: Just prior to arrival Onset/Duration: Sudden Quality of pain: Achy Pain Level: 5 Context: Patient was attempting to remove the pit from an avocado and accidentally stabb ed her left second finger. Patient is uncertain when her last tetanus immunization was. Associated Symptoms: Other - Left second finger laceration Exacerbated by: Movement Relieved by: Denies Similar symptoms previously: No Recently seen / treated by doctor: No - ROS ROS below otherwise negative: Yes Systems Reviewed and Negative: Yes All other systems reviewed and negative - NEURO Neurology: DENIES: Weakness - GASTROINTESTINAL Gastrointestinal: DENIES: Nausea - REPRODUCTIVE Reproductive: DENIES: : - MUSCULOSKELETAL Musculoskeletal: REPORTS: Extremity pain - DERM Skin Problems: Laceration Past Medical History - General Information source: Patient - Social History Smoking Status: Never Smoker Frequency of alcohol use: None Drug Abuse: None 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 IN LAST 30 DAYS: No - HEENT HEENT: Atraumatic, Normocephalic - NECK Neck: Normal Inspection - RESPIRATORY Respiratory: No Respiratory Distress - CARDIOVASCULAR Pulses: Normal: Radial - MUSCULOSKELETAL/EXTREMETIES Musculoskeletal/Extremeties: MAEW, FROM - NEURO Level of Consciousness: Awake, Alert, Appropriate Motor/Sensory: No Motor Deficit - DERM Integumentary: Warm, Dry, Laceration - 2 cm laceration to palmar surface of proximal phalanx of right second finger. Course - Vital Signs Vital signs: Temp Pulse Resp BP Pulse Ox 98.8 F 73 16 130/69 H 99 05/24/19 11:05 05/24/19 11:05 05/24/19 11:05 05/24/19 11:05 05/24/19 11:05 Procedures - Immobilization Left 2nd digit Pre-Proc Neuro Vasc Exam: Normal Immobilizer type: Finger splint (Static) Performed by: PCT Post-Proc Neuro Vasc Exam: Normal Alignment checked and good: Yes - Laceration/Wound Repair Left Finger 2nd digit Wound length (cm): 2 Wound's Depth, Shape: Irregular Laceration pre-procedure: Shur-Clens applied Anesthetic type: 1% Lidocaine Wound explored: Clean Wound Repaired With: Sutures Suture Size/Type: 5:0, Nylon Number of Sutures: 4 Layer Closure?: No Post-procedure wound care: Sterile dressing applied, Splint applied Post-procedure NV exam normal: Yes Complications: No Hands front picture: 1 - lac Discharge - Discharge Clinical Impression: Finger laceration Qualifiers: Encounter type: initial encounter Finger: index finger Damage to nail status: without damage Foreign body presence: without foreign body Laterality: left Qualified Code(s): S61.211A - Laceration without foreign body of left index finger without damage to nail, initial encounter Condition: Stable Disposition: HOME, SELF-CARE Instructions: Laceration Care ([facility]), Tetanus Immunization Given ([facility]) Additional Instructions: Return immediately for any new or worsening symptoms Followup with your primary care provider, call tomorrow to make a followup appointment Suture removal in 9 to 10 days Follow-up with hand surgeon for any persistent problems. Wear finger splint for the next 5 days and then remove Forms: Return to Work Referrals: YONY LOCKETT, DO [ACTIVE STAFF] - Follow up as needed
[2019-05-24 13:04] VITALS: BP 103/55
== END 2019-05-24 13:06 | disposition home or self-care (01) ==
LOC: ER 10:54
PROC: 0HQGXZZ Repair Left Hand Skin, External Approach (ICD-10-PCS; principal; 2019-05-24)
DX: S61.211A Laceration without foreign body of left index finger without damage to nail, initial encounter (principal); M79.645 Pain in left finger(s); W45.8XXA Other foreign body or object entering through skin, initial encounter
CPT/HCPCS: 99282; 90471; 90715; 12001; J3490 ×2

== ENCOUNTER 2019-06-03 10:02 | Emergency (ER) | payer MEDICAID ==
[2019-06-03 10:06] VITALS: BP 110/58
--- NOTE | 2019-06-03 10:12 | ER Document Report ---
HPI - HPI Patient complains to provider of: suture removal Time Seen by Provider: 06/03/19 10:09 Onset: Other - 05/24/19 Pain Level: 0 Context: 23-year-old female presents emergency department with request for suture removal from her left index finger. Patient denies pain at site. Denies numbness or tingling to area, fever or discharge. Patient reports it feels fine. 4 sutures intact site benign Associated Symptoms: None Exacerbated by: Denies Relieved by: Denies Similar symptoms previously: Yes Recently seen / treated by doctor: Yes - REPRODUCTIVE Reproductive: DENIES: : Past Medical History - General Information source: Patient - Social History Smoking Status: Unknown if Ever Smoked Family History: Reviewed & Not Pertinent Patient has suicidal ideation: No Patient has homicidal ideation: No - Medical History Medical History: Negative Renal/ Medical History: Denies: Hx Peritoneal Dialysis Surgical Hx: Negative Vertical Provider Document - CONSTITUTIONAL Agree With Documented VS: Yes Exam Limitations: No Limitations General Appearance: WD/WN, No Apparent Distress - INFECTION CONTROL TRAVEL OUTSIDE OF THE [place] IN LAST 30 DAYS: No - HEENT HEENT: Atraumatic, Normocephalic - NECK Neck: Supple - RESPIRATORY Respiratory: No Respiratory Distress - CARDIOVASCULAR Cardiovascular: Regular Rate - MUSCULOSKELETAL/EXTREMETIES Musculoskeletal/Extremeties: MAEW, FROM, Non-Tender - NEURO Level of Consciousness: Awake, Alert, Appropriate Motor/Sensory: No Motor Deficit - DERM Integumentary: Warm, Dry, Laceration - 4 sutures intact to the left index finger palmar side, site benign, no erythema no swelling no warmth no discharge Course - Re-evaluation Re-evalutation: 06/03/19 10:17 This 23-year-old female presents for suture removal. Denies pain or numbness or tingling at site. Suture site looks benign. Patient was instructed on the impo rtance of keeping the area clean and still monitor for signs of infection. She verbalized understanding to all instructions. After removal of the sutures slight opening to the area of laceration noted. The laceration is in the flexor fold. No erythema no discharge no warmth. Steri-Strips were applied. Patient was instructed to monitor the site and return for any signs of infection. Dictation of this chart was performed using voice recognition software; therefore, there may be some unintended grammatical errors. 06/03/19 10:48 - Vital Signs Vital signs: Temp Pulse Resp BP Pulse Ox 97.5 F 62 20 110/58 L 97 06/03/19 10:05 06/03/19 10:05 06/03/19 10:05 06/03/19 10:05 06/03/19 10:05 Discharge - Discharge Clinical Impression: Encounter for removal of sutures Condition: Stable Disposition: HOME, SELF-CARE Instructions: Suture Removal Additional Instructions: *You have been treated for a suture removal *Monitor the site for signs of infection such as pain, redness, swelling, warmth *Keep the area clean *Follow up with a primary care provider 1 week for recheck as indicated *Return to ED for signs of infection, worsening condition, changes, needs Referrals: JENNA GARRETT MD [Primary Care Provider] - Follow up as needed
== END 2019-06-03 10:51 | disposition home or self-care (01) ==
LOC: ER 10:02
DX: S61.211D Laceration without foreign body of left index finger without damage to nail, subsequent encounter (principal); X58.XXXD Exposure to other specified factors, subsequent encounter